=== PATIENT | male | born 1980 | race Caucasian/White ===

== ENCOUNTER 2017-02-14 21:10 | Emergency (ER) | payer BC ==
[2017-02-14] MEDS ORDERED: Lisinopril 20 MG Tab PO ONE (21:51)
[2017-02-14 21:57] VITALS: BP 193/113
--- NOTE | 2017-02-14 21:58 | EDM.PDOC ---
ED HISTORY OF PRESENT ILLNESS - General Chief Complaint: Cardiovascular Problem Stated Complaint: Hypertension Time Seen by Provider: 02/14/17 21:40 Source of Information: Reports: Patient, RN notes reviewed History Limitations: Reports: No limitations - History of Present Illness INITIAL COMMENTS - FREE TEXT/NARRATIVE: 36 year old male presents to the ED for evaluation of hypertension. He checks his BP on a regular basis as he has a diagnosis of hypertension and is on Lisinopril 40mg daily. Today his BP was elevated at 160/90 initially and then continued to increase up to 190 systolic. He takes his Lisinopril 40mg every evening and has not taken his dose yet today. He reports a burning sensation in his chest which is new as of today. He denies frequent heart burn symptoms prior to today. He denies chest pain, shortness of breath, dyspnea on exertion, lower extremity edema, vision changes and headache. He checks his BP one to two times a day and typically his BP runs in the 130-140s/80s. He has a log which he showed me with BPs in this range over the past couple weeks. He is under a lot of stress at his job. His PCP is through [facility] - Related Data Allergies/ADRs: Allergies Allergy/AdvReac Type Severity Reaction Status Date / Time No Known Allergies Allergy Verified 02/14/17 21:28 Home Meds: Home Meds Hydrochlorothiazide 12.5 mg PO DAILY #30 cap 02/14/17 [Rx] Levothyroxine Sodium [Synthroid] 300 mcg PO ACBREAKFAST 02/14/17 [History] Lisinopril 40 mg PO BEDTIME 02/14/17 [History] Past Medical History Cardiovascular History: Reports: Hypertension Respiratory History: Reports: Sleep apnea Endocrine/Metabolic History: Reports: Hypothyroidism Social & Family History - Tobacco Use Smoking Status *Q: Never Smoker - Recreational Drug Use Recreational Drug Use: No ED ROS GENERAL - Review of Systems Review Of Systems: See Below Constitutional: Reports: no symptoms. Denies: fever, chills, diaphoresis HEENT: Reports: No symptoms. Denies: Vertigo, Vision change Respiratory: Reports: No Symptoms. Denies: Shortness of Breath, Cough Cardiovascular: Reports: No symptoms, Other (burning sensation to chest). Denies: Chest pain, Dyspnea on exertion, Edema, Lightheadedness, Syncope GI/Abdominal: Reports: No symptoms. Denies: Abdominal pain, Nausea, Vomiting Neurological: Reports: No Symptoms. Denies: Dizziness, Headache ED EXAM, GENERAL - Physical Exam Exam: See Below Exam Limited By: No limitations General Appearance: alert, no apparent distress, obese Eye Exam: bilateral eye: EOMI, PERRL Respiratory/Chest: no respiratory distress, lungs clear, normal breath sounds, no accessory muscle use, chest non-tender Cardiovascular: normal peripheral pulses, regular rate, rhythm, no edema, no murmur Neurological: alert, oriented, normal cognition, no motor/sensory deficits Skin Exam: Warm, Dry, Intact EKG INTERPRETATION EKG Date: 02/14/17 Time: 21:58 Rhythm: NSR Rate (beats/min): 71 [place]: normal P-wave: present QRS: normal ST-T: normal QT: normal Course - Vital Signs Last Recorded V/S: Last Vital Signs Temp 97.2 F 02/14/17 21:22 Pulse 81 02/14/17 21:22 Resp 18 02/14/17 21:22 BP 193/113 H 02/14/17 21:57 Pulse Ox 96 02/14/17 21:22 - Orders/Labs/Meds Orders: Active Orders 24 hr Category Date Time Status EKG 12 Lead [EKG Documentation Completion] [RC] STAT Care 02/14/17 21:50 Active Labs: Laboratory Tests 02/14/17 02/14/17 Range/Units 22:07 22:07 WBC 9.66 H (4.23-9.07) K/mm3 RBC 5.13 (4.63-6.08) M/mm3 Hgb 14.8 (13.7-17.5) gm/L Hct 42.5 (40.1-51.0) % MCV 82.8 (79.0-92.2) fl MCH 28.8 (25.7-32.2) pg MCHC 34.8 (32.2-35.5) g/dl RDW Std Deviation 38.8 (35.1-43.9) fL Plt Count 242 (163-337) K/mm3 MPV 9.2 L (9.4-12.3) fl Neut % (Auto) 66.3 (34.0-67.9) % Lymph % (Auto) 24.5 (21.8-53.1) % [place] % (Auto) 7.6 (5.3-12.2) % Eos % (Auto) 1.1 (0.8-7.0) Baso % (Auto) 0.3 (0.1-1.2) % Neut # (Auto) 6.40 H (1.78-5.38) K/mm3 Lymph # (Auto) 2.37 (1.32-3.57) K/mm3 [place] # (Auto) 0.73 (0.30-0.82) K/mm3 Eos # (Auto) 0.11 (0.04-0.54) K/mm3 Baso # (Auto) 0.03 (0.01-0.08) K/mm3 Sodium 140 (136-145) mEq/L Potassium 3.7 (3.5-5.1) mEq/L Chloride 104 (98-107) mEq/L Carbon Dioxide 27 (21-32) mEq/L Anion Gap 12.7 (5-15) BUN 17 (7-18) mg/dL Creatinine 1.1 (0.7-1.3) mg/dL Est Cr Clr Drug Dosing 120.67 mL/min Estimated GFR (MDRD) > 60 (>60) mL/min BUN/Creatinine Ratio 15.5 (14-18) Glucose 111 H (74-106) mg/dL Calcium 9.1 (8.5-10.1) mg/dL Total Bilirubin 0.8 (0.2-1.0) mg/dL AST 37 (15-37) U/L ALT 62 (16-63) U/L Alkaline Phosphatase 69 (46-116) U/L Troponin I < 0.017 (0.00-0.056) ng/mL Total Protein 7.4 (6.4-8.2) g/dl Albumin 3.9 (3.4-5.0) g/dl Globulin 3.5 gm/dL Albumin/Globulin Ratio 1.1 (1-2) Meds: Medications Discontinued Medications Generic Name Dose Route Start Last Admin Trade Name Freq PRN Reason Stop Dose Admin Lisinopril 40 mg 02/14/17 21:51 02/14/17 21:57 Prinivil PO 02/14/17 21:52 40 mg ONETIME ONE Administration - Re-Assessments/Exams Free Text/Narrative Re-Assessment/Exam: BP has improved to 150s/80s. CBC CMP and troponin are normal. EKG normal Will start patient on HCTZ 12.5mg daily. Educated on return precautions and follow-up instructions Departure - Departure Time of Disposition: 22:57 Disposition: Home, Self-Care 01 Condition: good Clinical Impression: Hypertension Qualifiers: Hypertension type: essential hypertension Qualified Code(s): I10 - Essential ( primary) hypertension Prescriptions: Hydrochlorothiazide 12.5 mg PO DAILY #30 cap Forms: ED Department Discharge Additional Instructions: Follow-up with your primary care provider in 1-2 weeks for recheck Continue to monitor your blood pressure. If your blood pressure goes below 100 systolic, hold or stop the hydrochlorothiazide. Return to ER immediately if you develop chest pain, shortness of breath, vision changes, or blood press that sustains above 180 - My Orders Last 24 Hours: My Active Orders 02/14/17 21:50 EKG 12 Lead [EKG Documentation Completion] [RC] STAT - Assessment/Plan Last 24 Hours: My Active Orders 02/14/17 21:50 EKG 12 Lead [EKG Documentation Completion] [RC] STAT
== END 2017-02-14 23:04 | disposition home or self-care (01) ==
LOC: EDSEX 21:10 → JD.ED 21:10
DX: I10 Essential (primary) hypertension (principal); E03.9 Hypothyroidism, unspecified; Z79.899 Other long term (current) drug therapy
CPT/HCPCS: 36415; 80053; 84484; 85025; 93005; 99283; A9270; 99284

== ENCOUNTER 2020-08-20 14:20 | Emergency (ER) | payer BC ==
--- NOTE | 2020-08-20 15:07 | EDM.PDOC ---
ED HPI GENERAL MEDICAL PROBLEM - General Chief Complaint: Cardiovascular Problem Stated Complaint: LEG PAIN AND HIGH BLOOD PRESSURE Time Seen by Provider: 08/20/20 14:51 Source of Information: Reports: Patient, RN Notes Reviewed History Limitations: Reports: No Limitations - History of Present Illness INITIAL COMMENTS - FREE TEXT/NARRATIVE: Patient is a 39-year-old male who presents to the ED for evaluation of his left upper leg pain and elevated blood pressure. Patient has a history of hypertension, and has been having issues with elevated blood pressure readings as of late. He was seen by his care provider last week as his blood pressure was 190/100. He was started on Coreg, but states he had quite a few side effects so they decided to discontinue that. He was started on Spironolactone 25 mg twice daily after that. He has been tolerating this fairly okay. Blood pressure at time of triage is 178/97. He does also take lisinopril 40 mg daily. He is not having any headache blurred vision/double vision or chest pain. He has no shortness of breath or cough. He was seen in the walk-in clinic at [place] yesterday, and was concerned about 2 red areas on his left anterior thigh, and was told this could be cellulitis and put on Bactrim. 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 The areas in question are 8 cm x 8 cm, and 8 cm by roughly 4 cm. 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 Left Upper Leg Pain Score (Numeric/FACES): 7 - Related Data Allergies Allergy/AdvReac Type Severity Reaction Status Date / Time No Known Allergies Allergy Verified 02/14/17 21:28 Home Meds: Home Meds Levothyroxine Sodium [Synthroid] 300 mcg PO ACBREAKFAST 02/14/17 [History] Lisinopril 40 mg PO DAILY 02/14/17 [History] Spironolactone [Aldactone] 25 mg PO BID 08/20/20 [History] Sulfamethoxazole/Trimethoprim [Bactrim Ds Tablet] 1 tab PO BID 08/20/20 [History] Past Medical History Cardiovascular History: Reports: Hypertension Respiratory History: Reports: Sleep Apnea Endocrine/Metabolic History: Reports: Hypothyroidism - Past Surgical History GI Surgical History: Reports: Appendectomy Social & Family History - Tobacco Use Tobacco Use Status *Q: Never Tobacco User - Caffeine Use Caffeine Use: Reports: Coffee, Soda - Recreational Drug Use Recreational Drug Use: No ED ROS GENERAL - Review of Systems Review Of Systems: Comprehensive ROS is negative, except as noted in HPI. ED EXAM, GENERAL - Physical Exam Exam: See Below Exam Limited By: No Limitations General Appearance: Alert, WD/WN, No Apparent Distress Respiratory/Chest: No Respiratory Distress, Lungs Clear, Normal Breath Sounds, No Accessory Muscle Use, Chest Non-Tender Cardiovascular: Normal Peripheral Pulses, Regular Rate, Rhythm, No Edema, No Murmur Peripheral Pulses: 2+: Dorsalis Pedis (L), Dorsalis Pedis (R) Extremities: Normal Range of Motion, No Pedal Edema, Normal Capillary Refill, Increased Warmth (2 areas on the patient's left anterior thigh, one is 8 x 8 cm in dimension, the other is 8 x 4 cm. The areas are slightly tender to the touch, and slightly warm as compared to his surrounding skin.) Neurological: Alert, Oriented, Normal Cognition, No Motor/Sensory Deficits Psychiatric: Normal Affect, Normal Mood Skin Exam: Warm, Dry, Intact, No Rash, Erythema (see extremity assessment for detail) Course - Vital Signs Last Recorded V/S: Last Vital Signs Temp 97.6 F 08/20/20 14:50 Pulse 75 08/20/20 14:50 Resp 20 08/20/20 14:50 BP 178/97 H 08/20/20 14:50 Pulse Ox 98 08/20/20 14:50 - Orders/Labs/Meds Orders: Active Orders 24 hr Category Date Time Status VL Duplex Lwr Ext Veins Ltd Lt [US] Stat Exams 08/20/20 14:59 Taken - Re-Assessments/Exams Free Text/Narrative Re-Assessment/Exam: 08/20/20 15:08 Patient presents to the ED for the evaluation of his left leg issue, and elevated blood pressure. Although the patient's blood pressure is slightly elevated at 178 systolic in the ER. He is not having any neurological symptoms to warrant emergent blood pressure treatment at today's visit. For today's purposes we will get a ultrasound of the leg to evaluate for blood clot/phlebitis/cellulitis that he was told he had. Patient is okay with this plan at this time. 08/20/20 16:41 Patient's ultrasound demonstrates no sign of a DVT, there is evidence of superficial thrombophlebitis of his leg and in fact not cellulitis. Patient will be discharged home with general recommendations, he already has a follow-up with a vein doctor sometime next month, and I will have him follow-up with his primary care for further blood pressure issues. Blood pressure at this time is 151/80. Departure - Departure Time of Disposition: 16:49 Disposition: Home, Self-Care 01 Condition: Good Clinical Impression: Superficial thrombophlebitis of left leg Instructions: Phlebitis, [id number] Referrals: Cheng Garcia DO [Primary Care Provider] - Forms: ED Department Discharge Additional Instructions: You have been evaluated in the ED for your left left issue and elevated blood pressure. Your ultrasound done today demonstrated that you have a superficial thrombophlebitis of your left leg, and not a cellulitis or a DVT. Please do not continue taking the Bactrim antibiotic that you had previously been prescribed for the suspected cellulitis. Please use ice as tolerated to the affected area. Please try to elevate the affected area to relieve swelling. You may take Tylenol 500 mg or ibuprofen 600mg q6 hrs for pain relief. Please do so until you have a tolerable level of pain with activity. Do not exceed 4000mg Tylenol or 3200mg ibuprofen in a 24 hour time period. Recommend follow-up with the vein doctor as you have previously scheduled for your right leg, for further management regarding your veins. Please keep an eye on your blood pressure at home, take a few readings and discuss these with your primary care provider for further management of your blood pressure medication. Your blood pressure was within an acceptable range for today's purposes at the time of discharge. Please return to ED if your symptoms should change or worsen. Sepsis Event Note (ED) - Evaluation Sepsis Screening Result: No Definite Risk - Focused Exam Vital Signs: Vital Signs Temp Pulse Resp BP Pulse Ox 08/20/20 14:50 97.6 F 75 20 178/97 H 98 - My Orders Last 24 Hours: My Active Orders 08/20/20 14:59 VL Duplex Lwr Ext Veins Ltd Lt [US] Stat - Assessment/Plan Last 24 Hours: My Active Orders 08/20/20 14:59 VL Duplex Lwr Ext Veins Ltd Lt [US] Stat
[2020-08-20 17:11] VITALS: BP 156/79; PULSE 68
== END 2020-08-20 17:07 | disposition home or self-care (01) ==
LOC: JD.ED 14:20 → SUPCPDRO 14:20 → JD.ED 17:07
DX: I80.02 Phlebitis and thrombophlebitis of superficial vessels of left lower extremity (principal); I10 Essential (primary) hypertension; E03.9 Hypothyroidism, unspecified; Z90.49 Acquired absence of other specified parts of digestive tract; Z79.899 Other long term (current) drug therapy
CPT/HCPCS: 93971-LT; 99283-25

== ENCOUNTER 2025-03-24 07:51 | Day surgery (SDC) | payer BC ==
[~2025-03-24 07:51] MED LIST: Chloroprocaine 3% 30 MG/ML 20 ML SDV ONE; Sodium Chloride 0.9% 10 ML Syringe FLUSH PRN; Sodium Chloride 0.9% 10 ML Syringe FLUSH SCH
[2025-03-24] MEDS: Lactated Ringers 1,000 ML IV SCH (08:15)
[2025-03-24] MEDS ORDERED: fentaNYL 100 MCG/2 ML SDV ONE (08:21)
[2025-03-24] MEDS ORDERED: Midazolam 1 MG/ML 2 ML SDV ONE ×3 (08:21→11:47)
[2025-03-24] MEDS ORDERED: Lidocaine 2% 20 ML MDV ONE (08:46)
[2025-03-24] MEDS ORDERED: Lidocaine 1% 10 ML MDV ONE (08:46)
[2025-03-24] MEDS ORDERED: Bupivacaine 0.25% 10 ML SDV ONE (08:46)
[2025-03-24] MEDS ORDERED: Ondansetron 4 MG/2 ML SDV IVPUSH PRN (09:04)
[2025-03-24] MEDS ORDERED: HYDROmorphone 0.5 MG/0.5 ML Syringe IVPUSH PRN (09:04)
[2025-03-24] MEDS ORDERED: ceFAZolin 2 GM Vial ONE (09:19)
[2025-03-24] MEDS ORDERED: VANCOmycin 1 GM SDV ONE (11:35)
[2025-03-24] MEDS ORDERED: Propofol 200 MG/20 ML SDV ONE (11:49)
[2025-03-24] MEDS ORDERED: Lactated Ringers 1,000 ML IV ONE (11:50)
[2025-03-24] MEDS ORDERED: Hyaluronidase, Human Recomb. 150 Unit/ML Vial SUBCUT ONE (12:00)
[2025-03-24] MEDS: fentaNYL 100 MCG/2 ML SDV IVPUSH PRN (12:36)
[2025-03-24] MEDS: oxyCODONE 5 MG Tab PO ONE ×2 (13:15→14:01)
[2025-03-24 13:22] VITALS: PULSE 60
[2025-03-24 13:55] VITALS: BP 125/70
[2025-03-24] MEDS: VANCOmycin 1 GM SDV ONE (14:23)
== END 2025-03-24 15:00 | disposition home or self-care (01) ==
LOC: JD.SDS 07:51
PROVIDERS: ATTEND Orthopaedic Surgery
DX: S80.02XA Contusion of left knee, initial encounter (principal); I10 Essential (primary) hypertension; E03.9 Hypothyroidism, unspecified; G47.33 Obstructive sleep apnea (adult) (pediatric); Z79.890 Hormone replacement therapy; Z79.899 Other long term (current) drug therapy; E66.01 Morbid (severe) obesity due to excess calories; Z68.43 Body mass index [BMI] 50.0-59.9, adult
CPT/HCPCS: 10140; A9270; J0665; J0690; J2003; J2250; J2401; J2704; J3010; J7120; 00400; J3490